=== PATIENT | male | born 1945 | race Caucasian/White ===

== ENCOUNTER 2017-08-12 08:31 | Outpatient (CLI) | payer MEDICARE, BC ==
--- NOTE | 2017-08-12 11:53 | CT ---
CTA CHEST WITH IV CONTRAST AND 3D POSTPROCESSING: Date: 08/12/17 HISTORY: aortic valve insufficiency, thoracic aortic aneurysm without rupture. FINDINGS: Comparison made with CT pulmonary angiogram of 02/09/16. There is good opacification of the thoracic aorta. The ascending thoracic aorta measures 4.2 cm in ma ximum AP dimension and 4.4 cm in the transverse dimension. The descending thoracic aorta measures 2.8 cm. No intimal flap is seen to suggest dissection. The central pulmonary arteries are well opacified without central pulmonary embolism. Scarring in the lung apices is again seen. There are mild depend ent changes in the lung bases. No lung masses, focal areas of consolidation, or pneumothoraces are se en. There are emphysematous changes. Degenerative changes are present in the spine. IMPRESSION: Stable measurements of the thoracic aorta since 02/09/16. POS: [facility]
[2017-08-12] MEDS ORDERED: Iopamidol 370 76% 100 ML VIAL ONE (12:59)
== END 2017-08-12 08:32 | disposition home or self-care (01) ==
LOC: CT 08:31
PROVIDERS: ATTEND Internal Medicine Cardiovascular Disease
DX: I71.2 Thoracic aortic aneurysm, without rupture (principal); I71.9 Aortic aneurysm of unspecified site, without rupture; I35.1 Nonrheumatic aortic (valve) insufficiency
CPT/HCPCS: 71275; 82565

== ENCOUNTER 2019-03-31 10:09 | Outpatient (CLI) | payer MEDICARE, BC ==
--- NOTE | 2019-03-31 11:01 | CT ---
EXAM: CTA chest with and without contrast: Multiplanar reconstruction and 3-D postprocessing. INDICATIONS: Aortic aneurysm follow-up. COMPARISON: CTA chest 08/12/2017 FINDINGS: Mild aneurysmal dilatation of the ascending aorta again noted. Diameters measured at 4.1 cm , unchanged from the prior exam. Mild ectasia of the descending thoracic aorta again noted with mild atherosclerotic change. Diameter measured 2.8 cm mid descending thoracic aorta, unchanged from p rior exam. No evidence of dissection. Pulmonary arteries are opacified. No evidence of proximal pulmonary embolus. Lungs are well aerated. There is mild hyperexpansion consistent with COPD. Apical pleural thickening on the right with nodularity is stable. There is a new oblong shaped nodular mass anterior right upper lobe measuring 1.8 cm. This mass is peacock spicious for neoplasm. Mediastinum unremarkable. Images through upper abdomen unremarkable. IMPRESSION: 1. Mild aneurysmal dilatation of ascending thoracic aorta is stable. Mild ectasia the descending thor acic aorta is stable. 2. A new irregular shaped spiculated mass in the anterior right upper lobe is suspicious for neoplasm . Suggest further evaluation with PET scanning.
[2019-03-31] MEDS ORDERED: ISOVUE-370 76%-LOCM 1 ML ONE (11:59)
== END 2019-03-31 10:10 | disposition home or self-care (01) ==
LOC: BICCT 10:09
PROVIDERS: ATTEND Internal Medicine Cardiovascular Disease
DX: I71.2 Thoracic aortic aneurysm, without rupture (principal); I35.1 Nonrheumatic aortic (valve) insufficiency; I77.810 Thoracic aortic ectasia; R91.8 Other nonspecific abnormal finding of lung field
CPT/HCPCS: 71275; 82565; Q9966

== ENCOUNTER 2019-04-14 09:16 | Outpatient (CLI) | payer MEDICARE, BC ==
--- NOTE | 2019-04-14 13:16 | PET ---
PET CT SKULL TO MID THIGH: COMPARISON: Reference is made to recent CT chest 03/31/2019. HISTORY: Pulmonary nodule, right upper lobe. TECHNIQUE: A PET/CT was performed from the skull to the mid thigh after administration of 12.3 millicuries of F- 18 FDG. Evaluation was performed on a [email or web address] workstation. FINDINGS: NECK: No areas of hypermetabolic activity. CHEST: Pulmonary nodule of anterior right upper lobe is hypermetabolic, with maximum SUV 4.4. Within limitat ions of the nondiagnostic, attenuation correction technique, the nodule is approximately 1.6 cm in diameter. A pretracheal lymph node measuring approximately 1 cm in diameter hypermetabolic activity a t 2.4. ABDOMEN/PELVIS: No areas of hypermetabolic activity. SKELETON: No areas of hypermetabolic activity. CT images used for attenuation correction show pulmonary emphysema. Redemonstration of patient's know n thoracic aortic aneurysm, incompletely assessed on the basis of this exam.. IMPRESSION: 1. Right upper lobe pulmonary nodule is hypermetabolic, indicating malignancy. 2. There is borderline hypermetabolic activity of a mildly enlarged, 1 cm pretracheal lymph node. Transcribed Date/Time: 04/14/2019 1:28 PM
== END 2019-04-14 09:17 | disposition home or self-care (01) ==
LOC: PET 09:16
PROVIDERS: ATTEND Internal Medicine Critical Care Medicine
DX: R91.1 Solitary pulmonary nodule (principal); C34.11 Malignant neoplasm of upper lobe, right bronchus or lung; R59.0 Localized enlarged lymph nodes
CPT/HCPCS: 78815; A9552

== ENCOUNTER 2019-04-21 10:26 | Day surgery (SDC) | payer MEDICARE, BC ==
--- NOTE | 2019-04-20 08:20 | HP ---
SERVICE: Pulmonary Medicine. INTERVAL HISTORY: The patient returns to clinic with no complaints of fevers, chills, nausea, vomiting, or diarrhea. Apparently, he had a surveillance CT of the chest performed, which demonstrated a spiculated pulmonary nodule and some small mediastinal lymph nodes. As such, he was referred for a PET scan. The PET scan suggested that these lesions were both hypermetabolic. As such, he returns to clinic today to pursue the next diagnostic step. He denies having any shortness of breath, nausea, vomiting, hemoptysis, weight loss, or night sweats. He does not relate having any significant dyspnea that limits his activity. PAST MEDICAL HISTORY: 1. COPD, mild. 2. Obstructive sleep apnea, mild. 3. Aortic aneurysm, status post stent placement one year ago. 4. History of tobacco abuse, resolved for over 20 years. 5. Sinus bradycardia. 6. Dyslipidemia. 7. Coronary artery disease. PAST SURGICAL HISTORY: 1. Aortic stent placement. 2. Left face reconstruction following traumatic event. SOCIAL HISTORY: Negative for current tobacco, alcohol, or illicit drug use. He smoked a pack a day for over 30 years, but stopped smoking over 23 years ago. 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 FAMILY HISTORY: Noncontributory. ALLERGIES: NO KNOWN DRUG ALLERGIES. MEDICATIONS: 1. Plavix 75 mg p.o. daily. 2. Aspirin 81 mg p.o. daily. 3. Atorvastatin 20 mg p.o. daily. 4. ARB, unknown dose. REVIEW OF SYSTEMS: General, head, ears, eyes, nose, throat, cardiovascular, respiratory, GI, , musculoskeletal, neurologic, and skin are negative except as mentioned in HPI. PHYSICAL EXAMINATION: VITAL SIGNS: Afebrile, pulse 62, respirations 14, and saturation 96%, currently on room air. GENERAL: The patient is awake and alert, in no apparent distress. LUNGS: Reduced air entry is minimal. There is no prolonged expiratory phase or wheezing present. HEART: Normal rate, regular. ABDOMEN: Soft, nontender, nondistended. Bowel sounds are positive. MUSCULOSKELETAL: No cyanosis or clubbing. No pitting in the bilateral lower extremities. NEUROLOGIC: Grossly nonfocal. IMAGING: PET scan of the chest demonstrates hypermetabolic activity in the right upper lobe anterior pulmonary nodule. There is also hypermetabolic activity of mediastinal lymph node. Otherwise, there is no extrathoracic disease identified via PET. ASSESSMENT: 1. Pulmonary nodule, PET positive. 2. Mediastinal lymph node, prominence with borderline hypermetabolic activity. 3. Chronic obstructive pulmonary disease, mild. 4. Obstructive sleep apnea, mild. DISCUSSION AND PLAN: The patient is doing fine from a respiratory standpoint. We talked about different sampling options available to us. They certainly would like to pursue a diagnosis. After discussing transcutaneous biopsy versus endoscopic bronchial ultrasound-guided FNA of the lymph node and attempted sampling of pulmonary nodule in the right upper lobe, they are opting to pursue the bronchoscopy procedures first. They do understand that we could end up with a nondiagnostic study which would subsequently require transcutaneous approach. We have verified with Dr. Aquino that the risk of holding anti-platelet therapy is low enough that we can proceed with the procedure. As such, I have him hold his medications today (last dose was Wednesday) and we will plan on doing the biopsy Wednesday. I have him return to clinic almost one week after that, so we can review the pathology results and discuss next steps moving forward. Job ID: [id number]
[2019-04-20 12:28] VITALS: BMI 22.7
[2019-04-21] MEDS ORDERED: Sodium Chloride 0.9% 1,000 ML IV SCH (11:15)
[2019-04-21] MEDS ORDERED: Lidocaine 4% PF 5 ML AMP NEB SCH (11:15)
[2019-04-21] MEDS ORDERED: Fentanyl 100 MCG/2 ML VIAL ONE (11:18)
--- NOTE | 2019-04-21 20:52 | OP ---
DATE OF PROCEDURE: 04/21/2019 SERVICE: Pulmonary Medicine. PROCEDURES PERFORMED: Fiberoptic bronchoscopy with; 1. Endoscopic bronchial ultrasound-guided transbronchial needle aspiration of station R4. 2. Visual airway inspection. 3. Endobronchial brush from the right upper lobe. 4. Bronchoalveolar lavage from the right upper lobe. 5. Transbronchial biopsies from the right upper lobe. PREPROCEDURE DIAGNOSES: 1. Pulmonary nodule. 2. Mediastinal lymph node prominence without lymphadenopathy. POSTPROCEDURE DIAGNOSES: 1. Pulmonary nodule. 2. Mediastinal lymph node, benign lymphocytes identified. PREANESTHESIA ASSESSMENT: An H and P had been performed. The patient's medications and allergies were reviewed. Informed consent was obtained after discussing the risks, benefits, and rationale for performing the procedure. DESCRIPTION OF PROCEDURE: A time-out was performed identifying the correct patient with name and date of . The procedure was verified. After induction with anesthesia, the endoscopic bronchial ultrasound bronchoscope was introduced through the endotracheal tube and into the tracheobronchial tree. Limited visual inspection was performed. The bronchoscope was withdrawn into the trachea and a j luis survey was performed. Station R4 was sampled. There was no significant bleeding post biopsy. The bronchoscope was exchanged for a diagnostic fiberoptic bronchoscope. It was advanced into the trachea, where a tracheobronchial tree inspection was carried out with clear identification of the right upper lobe, right middle lobe, right lower lobe, left upper lobe, lingula, and left lower lobe. Anatomy was normal to the segmental level. Multiple adherent pieces of mucus were present and scattered throughout bilateral lungs. Endobronchial brushings were obtained from the right upper lobe, anterior segment under fluoroscopic guidance. A BAL was subsequently performed. This was followed by transbronchial biopsies from the same segment of the right upper lobe. Postprocedure x-ray did not demonstrate a pneumothorax. FINDINGS: 1. No endobronchial disease was identified. 2. Amelia appeared sharp. 3. Secretions were minimal, but small study mucus drops were extremely thick. 4. Rapid on-site pathology demonstrated benign lymph node at station R4. No additional lymph nodes were identified. SPECIMENS OBTAINED: 1. Pathology on BAL, brushing, and transbronchial biopsy. 2. Fine-needle aspiration of station R4 for cytology. COMPLICATIONS: None. FLUOROSCOPY TIME: 2 minutes. DISPOSITION: The patient will be discharged home with postprocedure instructions. He will return to clinic as previously directed. Job ID: [id number]
== END 2019-04-21 15:15 | disposition home or self-care (01) ==
LOC: SDC 10:26
PROVIDERS: ATTEND Internal Medicine
PROC: 0BDC8ZX Extraction of Right Upper Lung Lobe, Via Natural or Artificial Opening Endoscopic, Diagnostic (ICD-10-PCS; principal; 2019-04-21)
PROC: 0BBC8ZX Excision of Right Upper Lung Lobe, Via Natural or Artificial Opening Endoscopic, Diagnostic (ICD-10-PCS; 2019-04-21)
PROC: 07D78ZX Extraction of Thorax Lymphatic, Via Natural or Artificial Opening Endoscopic, Diagnostic (ICD-10-PCS; 2019-04-21)
PROC: 0B9C8ZX Drainage of Right Upper Lung Lobe, Via Natural or Artificial Opening Endoscopic, Diagnostic (ICD-10-PCS; 2019-04-21)
DX: R91.1 Solitary pulmonary nodule (principal); R59.0 Localized enlarged lymph nodes; J44.9 Chronic obstructive pulmonary disease, unspecified; G47.33 Obstructive sleep apnea (adult) (pediatric); E78.5 Hyperlipidemia, unspecified; I25.10 Atherosclerotic heart disease of native coronary artery without angina pectoris; Z79.02 Long term (current) use of antithrombotics/antiplatelets; Z79.82 Long term (current) use of aspirin; Z79.899 Other long term (current) drug therapy; Z87.891 Personal history of nicotine dependence
CPT/HCPCS: 76000; 88104; 88112; 88172; 88173; 88177; 88305; 88312; J3010; J7620

== ENCOUNTER 2019-05-09 08:31 | Day surgery (SDC) | payer MEDICARE, BC ==
[2019-05-08 13:48] VITALS: BMI 22.7
[2019-05-09 08:47] LABS: #Basophils 0.1 thou/uL (0.0-0.2); #Eosinphils 0.4 thou/uL (0.0-0.7); #Lymphocytes 1.3 thou/uL (1.20-3.40); #Monocytes 0.6 thou/uL (0.11-0.59); #Neutrophils 3.7 thou/uL (1.40-6.50); %Eosinophils 7.1 % (0.0-10.0); %Lymphocytes 21.8 % (21.0-51.0); %Monocytes 9.4 % (0.0-10.0); %Neutrophils 60.7 % (42.0-75.0); Hemoglobin 14.8 g/dL (14.0-18.0); Mean Corpuscular HGB CONC 32.5 g/dL (32.0-36.0); Mean Corpuscular Hemoglobin 29.2 pg (27.0-31.0); Mean Corpuscular Volume 90.1 fL (78.0-98.0); Mean Platelet Volume 8.3 fL (7.4-10.4); Platelet Count 195 thou/uL (130-400); RBC Distribution Width 12.3 % (11.5-14.5); Red Blood Cell (RBC) Count 5.07 mill/uL (4.70-6.10); White Blood Cell (WBC) Count 6.1 thou/uL (4.8-10.8)
[2019-05-09 08:52] LABS: PTT 34.9 SEC (22.9-36.1); Prothrombin Time 12.8 SEC (12.0-14.7)
[2019-05-09] MEDS ORDERED: Prevnar 13-Val Conj/PF 0.5 ML SYRINGE IM ONE (09:00)
[2019-05-09] MEDS ORDERED: FLU VACC TS2019-20(65YR UP)/PF 180 MCG/0.5 ML SYRINGE IM ONE (09:00)
[2019-05-09] MEDS ORDERED: Benzonatate 100 MG CAP PO SCH (09:45)
[2019-05-09 10:10] VITALS: BP 127/89; TEMP 97.2
[2019-05-09] MEDS ORDERED: Sodium Bicarbonate 2.5 MEQ/5 ML VIAL ONE (10:13)
[2019-05-09] MEDS ORDERED: Fentanyl 100 MCG/2 ML VIAL ONE (10:13)
[2019-05-09] MEDS ORDERED: Midazolam HCl 2 mg/2 ml Vial ONE (10:14)
--- NOTE | 2019-05-09 12:04 | CT ---
CT chest Limited noncontrast HISTORY: Lung lesion. Abnormal PET scan. CT-guided biopsy planned. FINDINGS: After explaining the procedure and answering all questions, limited CT imaging of the chest was performed. CT biopsy was planned with skin markers in place. Patient was treated with a Tessalon Perles and 50 mcg fentanyl, IV. In the area of spiculated nodule at the far anterior medial aspect of the right upper lobe, the mass has nearly completely resolved. Small amount of linear scarring remains without a measurable nodule. Mild atelectasis is also evident at each lung base. These findings were discussed with the patient and with visualized and were called to the office of Diane Quesada. Biopsy was not performed due to the significant improvement. IMPRESSION: Near complete interval resolution of the right upper lobe nodule. Biopsy not performed. T he nodule was likely related to prior inflammation/infection. Please consider follow-up CT chest in 4-6 months to evaluate for continued resolution and any other o ther changes.
== END 2019-05-09 11:25 | disposition home or self-care (01) ==
LOC: CT 08:31
PROVIDERS: ATTEND Internal Medicine
DX: R91.1 Solitary pulmonary nodule (principal); J44.9 Chronic obstructive pulmonary disease, unspecified; I10 Essential (primary) hypertension; I25.10 Atherosclerotic heart disease of native coronary artery without angina pectoris; E78.5 Hyperlipidemia, unspecified; G47.33 Obstructive sleep apnea (adult) (pediatric); Z87.891 Personal history of nicotine dependence; Z79.02 Long term (current) use of antithrombotics/antiplatelets; Z79.82 Long term (current) use of aspirin; Z79.899 Other long term (current) drug therapy; Z95.5 Presence of coronary angioplasty implant and graft
CPT/HCPCS: 36415; 76380; 85025; 85610; 85730; J2250; J3010

== ENCOUNTER 2019-10-10 09:53 | Outpatient (CLI) | payer MEDICARE, BC ==
[2019-10-10] MEDS ORDERED: Iopamidol-370 76% 500 ML 1 ML ONE (10:00)
--- NOTE | 2019-10-10 10:54 | CT ---
EXAM: CT Chest W Con PROVIDED CLINICAL HISTORY: Pulmonary nodule COMPARISON: CT examinations 03/31/2019, 08/12/2017 and 03/17/2016 FINDINGS: The heart, pericardium and great vessels demonstrate an unchanged CT appearance. There has been interval essential resolution of anterior segment right upper lobe parenchymal opacity . Minimal linear parenchymal scarring remains in this location. There are stable spiculated nodular densities involving the right lung apex. There is a stable nodular focus at the medial aspect of the right lower lobe. The lungs appear free of suspicious opacity. Emphysematous changes are redemonstrated. No pleural fluid or pneumothorax apparent. The airway appea rs patent and of normal caliber. No evidence for thoracic lymph node enlargement. The visualized portions of the upper abdomen demonstrate no significant abnormality. The osseous stru ctures demonstrate no concerning osteoblastic or osteolytic lesions. IMPRESSION: Interval resolution of previously described right upper lobe pulmonary nodule. Otherwise stable exam.
== END 2019-10-10 09:54 | disposition home or self-care (01) ==
LOC: BICCT 09:53
PROVIDERS: ATTEND Internal Medicine Critical Care Medicine
DX: R91.1 Solitary pulmonary nodule (principal); J44.9 Chronic obstructive pulmonary disease, unspecified
CPT/HCPCS: 71260; 82565; Q9967

== ENCOUNTER 2020-06-19 09:29 | Outpatient (CLI) | payer MEDICARE, BC ==
[2020-06-19] MEDS ORDERED: Iopamidol 370 76% 100 ML VIAL ONE (13:01)
--- NOTE | 2020-06-19 14:10 | CT ---
CTA OF THE CHEST WITH CONTRAST: 06/19/20 COMPARISON: 10/10/19, 03/31/19, 08/12/17, 03/17/16. HISTORY: Thoracic aortic aneurysm. Follow-up exam. TECHNIQUE: Multiple contiguous axial images were obtained in a CTA of the chest with contrast. 3D sagittal and c oronal MIP reformats were performed. FINDINGS: Emphysematous changes are seen in the lungs. There is scarring in the right apex and in the anterior aspect of the right upper lobe where there was previously an area of nodularity. No suspicious pulmon madalyn nodules are seen at this time. No pneumothorax or pleural effusion are seen. The heart is normal in size. No hilar or mediastinal lymphadenopathy are appreciated. There is stable enlargement of the ascending aorta. The annulus of the aorta measures 5.5 cm in maxim um dimension. The ascending aorta measures 4.0 cm in greatest dimension at the level of the pulmonary artery. The descending thoracic aorta measures 3.4 cm superiorly and 2.2 cm at the diaphragmatic hia tus. Degenerative changes are seen in the spine. The visualized subdiaphragmatic structures are unremarkab le. The chest wall soft tissues are unremarkable. IMPRESSION: 1. Stable aneurysmal dilatation of the ascending thoracic aorta. 2. Emphysema of the lungs with scarring in the right upper lobe. POS: [facility]
== END 2020-06-19 09:30 | disposition home or self-care (01) ==
LOC: BICCT 09:29
PROVIDERS: ATTEND Internal Medicine Cardiovascular Disease
DX: I71.2 Thoracic aortic aneurysm, without rupture (principal); J43.9 Emphysema, unspecified; J98.4 Other disorders of lung
CPT/HCPCS: 71275; 82565

== ENCOUNTER 2021-07-25 07:51 | Outpatient (CLI) | payer MEDICARE, BC | END 2021-07-25 07:52 | disposition home or self-care (01) | LOC: BICCT 07:51 | PROVIDERS: ATTEND Internal Medicine Cardiovascular Disease | DX: I71.2 Thoracic aortic aneurysm, without rupture (principal); J98.4 Other disorders of lung | CPT/HCPCS: 71275; 82565 ==

== ENCOUNTER 2021-11-18 08:23 | Inpatient (IN) | payer MEDICARE, BC ==
[2021-11-18 08:45] LABS: #Basophils 0.1 thou/uL (0.0-0.2); #Eosinphils 0.4 thou/uL (0.0-0.7); #Lymphocytes 1.5 thou/uL (1.20-3.40); #Monocytes 0.6 thou/uL (0.11-0.59); #Neutrophils 4.5 thou/uL (1.40-6.50); %Basophils 0.9 % (0.0-1.0); %Eosinophils 5.3 % (0.0-10.0); %Lymphocytes 21.8 % (21.0-51.0); %Neutrophils 64.1 % (42.0-75.0); Hemoglobin 16.4 g/dL (14.0-18.0); Mean Corpuscular HGB CONC 33.2 g/dL (32.0-36.0); Mean Corpuscular Hemoglobin 30.9 pg (27.0-31.0); Mean Platelet Volume 8.6 fL (7.4-10.4); Platelet Count 183 thou/uL (130-400); RBC Distribution Width 12.5 % (11.5-14.5)
[2021-11-18 09:06] LABS: ALT (SGPT) 19 U/L (8-55); AST (SGOT) 20 U/L (5-34); Albumin 4.1 g/dL (3.4-4.8); Alkaline Phosphatase 55 U/L (40-110); Anion Gap 10 mmol/L (10-20); BUN (Urea Nitrogen) 14 mg/dL (8.4-25.7); Bilirubin, Total 0.8 mg/dL (0.2-1.2); Calc. Creatinine Clearance 0 mL/min (70-130); Calcium 9.7 mg/dL (7.8-10.44); Carbon Dioxide 27 mmol/L (23-31); Chloride 108 mmol/L (98-107); Globulin 3.2 g/dL (2.4-3.5); Glucose 105 mg/dL (83-110); Protein, Total 7.3 g/dL (5.8-8.1); Sodium 141 mmol/L (136-145)
[2021-11-18] MEDS ORDERED: Nitroglycerin 2% Ointment 1 INCH/1 GM Packet ONE (09:17)
[2021-11-18] MEDS ORDERED: Ondansetron PF 4 MG/2 ML Vial IVP PRN (11:35)
[2021-11-18] MEDS ORDERED: Bisacodyl 5 MG TAB PO PRN (11:35)
[2021-11-18] MEDS ORDERED: Acetaminophen 650 MG Suppository PR PRN (11:35)
[2021-11-18] MEDS ORDERED: Senokot S 8.6-50 MG TAB PO PRN (11:35)
[2021-11-18] MEDS ORDERED: Ondansetron ODT 4 MG TAB PO PRN (11:35)
[2021-11-18] MEDS ORDERED: Morphine 2 MG/ML VIAL SLOW IVP PRN (11:40)
[2021-11-18 12:31] LABS: Troponin I 0.581 ng/mL (< 0.028)
[2021-11-18 15:33] VITALS: BMI 22.0
[2021-11-18] MEDS ORDERED: Enoxaparin Sodium 80 MG/0.8 ML SYRINGE SC SCH (16:15)
[2021-11-18 16:49] LABS: Troponin I 5.771 ng/mL (< 0.028)
[2021-11-18] MEDS: Acetaminophen 325 MG TAB PO PRN (20:35)
[2021-11-18] MEDS: Atorvastatin Calcium 40 MG TAB PO SCH (20:35)
[2021-11-19 04:51] LABS: #Basophils 0.1 thou/uL (0.0-0.2); #Eosinphils 0.4 thou/uL (0.0-0.7); #Lymphocytes 1.4 thou/uL (1.20-3.40); #Monocytes 0.7 thou/uL (0.11-0.59); #Neutrophils 6.5 thou/uL (1.40-6.50); %Basophils 0.7 % (0.0-1.0); %Eosinophils 4.3 % (0.0-10.0); %Lymphocytes 15.2 % (21.0-51.0); %Monocytes 7.9 % (0.0-10.0); %Neutrophils 71.9 % (42.0-75.0); Hemoglobin 14.7 g/dL (14.0-18.0); Mean Corpuscular HGB CONC 33.3 g/dL (32.0-36.0); Mean Corpuscular Hemoglobin 30.9 pg (27.0-31.0); Mean Corpuscular Volume 92.7 fL (78.0-98.0); Mean Platelet Volume 8.5 fL (7.4-10.4); Platelet Count 179 thou/uL (130-400); RBC Distribution Width 12.4 % (11.5-14.5); Red Blood Cell (RBC) Count 4.75 mill/uL (4.70-6.10); White Blood Cell (WBC) Count 9.1 thou/uL (4.8-10.8)
[2021-11-19 05:20] LABS: Anion Gap 11 mmol/L (10-20); BUN (Urea Nitrogen) 18 mg/dL (8.4-25.7); Calc. Creatinine Clearance 58 mL/min (70-130); Calcium 9.2 mg/dL (7.8-10.44); Carbon Dioxide 23 mmol/L (23-31); Cardiac Risk 2.9 (Less than 4.5); Chloride 108 mmol/L (98-107); Cholesterol 116 mg/dl (< 200 Desired); Glucose 107 mg/dL (83-110); HDL Cholesterol 40 mg/dL (>60 Neg Risk); LDL Cholesterol, Calculated 58 mg/dL; Potassium 3.7 mmol/L (3.5-5.1); Sodium 138 mmol/L (136-145); Triglycerides 89 mg/dL (Less than 150)
[2021-11-19] MEDS: Acetaminophen 325 MG TAB PO PRN ×2 (07:34→20:19)
[2021-11-19] MEDS: Aspirin Chewable 81 MG TAB PO SCH (07:35)
[2021-11-19] MEDS ORDERED: Iopamidol 370 76% 50 ML VIAL FS ONE (09:09)
[2021-11-19] MEDS ORDERED: Iopamidol 370 76% 100 ML VIAL ONE (09:09)
[2021-11-19] MEDS ORDERED: Communication Order-Pharmacy FS SCH (09:15)
[2021-11-19] MEDS ORDERED: Sodium Chloride 0.9% 1,000 ML IV SCH (09:15)
[2021-11-19] MEDS ORDERED: Lidocaine 1% (PF) 30 ML VIAL ONE (10:00)
[2021-11-19] MEDS ORDERED: Midazolam HCl 2 mg/2 ml Vial ONE (10:33)
[2021-11-19] MEDS ORDERED: Fentanyl 100 MCG/2 ML VIAL ONE (10:33)
[2021-11-19] MEDS ORDERED: Sodium Chloride 0.9% 200 ML IV PRN (11:29)
[2021-11-19] MEDS ORDERED: Acetaminophen/Codeine 30-300mg Tablet PO PRN (11:29)
[2021-11-19] MEDS: Sodium Chloride 0.9% 1,000 ML IV SCH (11:53)
[2021-11-19 12:19] LABS: SARS-CoV-2 PCR by NAA Not Detected (NotDetected)
[2021-11-19] MEDS: Atorvastatin Calcium 40 MG TAB PO SCH (20:20)
[2021-11-20] MEDS: Sodium Chloride 0.9% 1,000 ML IV SCH ×3 (02:36→08:58)
[2021-11-20 05:34] LABS: Anion Gap 7 mmol/L (10-20); BUN (Urea Nitrogen) 14 mg/dL (8.4-25.7); Calc. Creatinine Clearance 69 mL/min (70-130); Calcium 8.8 mg/dL (7.8-10.44); Carbon Dioxide 26 mmol/L (23-31); Chloride 111 mmol/L (98-107); Glucose 87 mg/dL (83-110); Potassium 4.2 mmol/L (3.5-5.1); Sodium 140 mmol/L (136-145)
[2021-11-20 05:45] LABS: #Eosinphils 0.3 thou/uL (0.0-0.7); #Lymphocytes 1.4 thou/uL (1.20-3.40); #Monocytes 0.5 thou/uL (0.11-0.59); #Neutrophils 4.2 thou/uL (1.40-6.50); %Basophils 0.7 % (0.0-1.0); %Eosinophils 4.1 % (0.0-10.0); %Lymphocytes 22.2 % (21.0-51.0); %Monocytes 8.4 % (0.0-10.0); %Neutrophils 64.6 % (42.0-75.0); Hemoglobin 14.2 g/dL (14.0-18.0); Mean Corpuscular HGB CONC 34.1 g/dL (32.0-36.0); Mean Corpuscular Hemoglobin 31.2 pg (27.0-31.0); Mean Corpuscular Volume 91.5 fL (78.0-98.0); Mean Platelet Volume 5.7 fL (7.4-10.4); Platelet Count 172 thou/uL (130-400); RBC Distribution Width 14.1 % (11.5-14.5); Red Blood Cell (RBC) Count 4.56 mill/uL (4.70-6.10); White Blood Cell (WBC) Count 6.5 thou/uL (4.8-10.8)
[2021-11-20] MEDS: Aspirin Chewable 81 MG TAB PO SCH (08:57)
[2021-11-20] MEDS ORDERED: Clopidogrel Bisulfate 75 MG TAB PO SCH (09:00)
[2021-11-20] MEDS ORDERED: Losartan 25 MG TAB PO SCH (09:00)
[2021-11-20 14:49] VITALS: BP 125/60; TEMP 97.9
== END 2021-11-20 14:35 | disposition home or self-care (01) | DRG 281 ==
LOC: ERS 08:23 → 2NO 11:19 → OBSVTOIN 11-19 09:59
PROVIDERS: ADMIT Internal Medicine; ATTEND Internal Medicine
PROC: 4A023N7 Measurement of Cardiac Sampling and Pressure, Left Heart, Percutaneous Approach (ICD-10-PCS; principal; 2021-11-19)
PROC: B2151ZZ Fluoroscopy of Left Heart using Low Osmolar Contrast (ICD-10-PCS; 2021-11-19)
PROC: B2111ZZ Fluoroscopy of Multiple Coronary Arteries using Low Osmolar Contrast (ICD-10-PCS; 2021-11-19)
DX: I21.4 Non-ST elevation (NSTEMI) myocardial infarction (principal); I50.32 Chronic diastolic (congestive) heart failure; J96.11 Chronic respiratory failure with hypoxia; Z20.822 Contact with and (suspected) exposure to COVID-19; I71.2 Thoracic aortic aneurysm, without rupture; G47.33 Obstructive sleep apnea (adult) (pediatric); I11.0 Hypertensive heart disease with heart failure; E78.5 Hyperlipidemia, unspecified; I25.10 Atherosclerotic heart disease of native coronary artery without angina pectoris; J44.9 Chronic obstructive pulmonary disease, unspecified; R00.1 Bradycardia, unspecified; Z95.5 Presence of coronary angioplasty implant and graft; Z79.82 Long term (current) use of aspirin; Z79.899 Other long term (current) drug therapy; Z86.711 Personal history of pulmonary embolism; Z87.891 Personal history of nicotine dependence
CPT/HCPCS: 36415; 71045; 71275; 74174; 80048; 80053; 80061; 83735; 84484; 85025; 85379; 93005; 93306; 93458; 93798; 99152; J1650; J2001; J2250; J3010; J7050; Q9967; U0003; U0005

== ENCOUNTER 2024-05-21 14:13 | Emergency (ER) | payer MEDICARE ==
[2024-05-21] MEDS ORDERED: Fluorescein Opthalmic Strip ONE (14:53)
[2024-05-21] MEDS ORDERED: Proparacaine 0.5% Opth 15 ML BOT ONE (14:53)
[2024-05-21] MEDS ORDERED: Ibuprofen 200 MG TAB ONE (16:13)
== END 2024-05-21 16:55 | disposition home or self-care (01) ==
LOC: ERS 14:13
DX: B02.8 Zoster with other complications (principal); I10 Essential (primary) hypertension; F17.220 Nicotine dependence, chewing tobacco, uncomplicated
CPT/HCPCS: 70450; 70486; 72125